=== PATIENT | female | born 1945 | race Caucasian/White ===

== ENCOUNTER 2016-10-06 03:18 | Emergency (ER) | payer OTHER ==
[~2016-10-06] VITALS: Ht 162.6 cm; Wt 69.9 kg
[~2016-10-06 03:18] MED LIST: ALBUTEROL0.09 MG/A1 INH; AZITHROMYCIN250 MG PO; CIPRO 500MG TA500 MG PO; DOXYCYCLINE100 MG PO; ESTRACE0.1 MG/GM TOP; LEVAQUIN500 MG PO; NORVASC5 M1 PO; PREDNISONE 20MG20 MG PO; PYRIDIUM200 MG PO; ROBITUSSIN W/CO10 ML PO; SMZ-TMP 800 MG-1 TAB PO; VITAMIN D32000 I1 PO; ZOFRAN ODT4 MG SL
[2016-10-06 04:07] VITALS: BP 165/82
--- NOTE | 2016-10-06 04:20 | ED GI/GU/ABDOMINAL COMPLAINT ---
History of Present Illness General Chief Complaint: Female Urogenital Problems Stated Complaint: "PER PT ?UTI" Source: patient, family Exam Limitations: no limitations Vital Signs & Intake/Output Vital Signs & Intake/Output Vital Signs Date Time Temp Pulse Resp B/P B/P Pulse O2 O2 Flow FiO2 Mean Ox Delivery Rate 10/06 0407 98.9 91 18 165/82 95 Room Air Allergies Coded Allergies: MDX - Penicillin (HIVES 04/01/15) Reconcile Medications Albuterol Sulfate (Albuterol Sulfate Hfa) 0.09 MG/Actuation ARIEL 2 PUFF INH Q4- 6 PRN PRN SHORTNESS OF BREATH 90 MCG PER PUFF Amlodipine Besylate (Norvasc) 5 MG TABLET 1 TAB PO DAILY HTN (Reported) Azithromycin 250 MG TAB 1 DP PO AD ANTIBIOTIC (Reported) 2 the first day followed by 1 for days 2-5 CHOLECALCIFEROL (VITAMIN D3) (Vitamin D-3) 2,000 IU SGL 1 SGL PO DAILY SUPPLEMENT (Reported) Levofloxacin (Levaquin) 500 MG TAB 1 TAB PO DAILY BRONCHITIS Ondansetron (Zofran Odt) 4 MG TAB.RAPDIS 1 TAB SL TID PRN nausea Phenazopyridine HCl (Pyridium) 100 MG TABLET 1 TAB PO TID PRN burning with urination Prednisone 20 MG TAB 2 TAB PO DAILY BRONCHTIIS Robitussin AC (Guaifenesin-Codeine Syrup) 10 ML UDC 10 ML PO Q6HR PRN COUGH Triage Note: PER PT UTI SYMPTOMS X 1 MONTH, TOOK COURSE OF MACRODANTIN PER PMD RESULTS NEGATIVE PT STILL REPORTS SYMPTOMS Triage Nurses Notes Reviewed? yes ? n Is pt currently ? No Onset: Gradual Duration: week(s): Timing: recent history Quality/Severity: dysuria Location: "It only [place] when I urinate" No abdominal pain Radiation: no radiation Activities at Onset: "worse when I eat tomatos" Modifying Factors: Worsens With: urinating. Associated Symptoms: burning with urination HPI: 71 yo woman with several weeks of intermittent dysuria. She notes that she completed a course of macrobid, but she still feels intermittent symptoms, especially after she eats tomatos. She also notes, "Sometimes I feel flushed... I just don't feel good." She denies chest pain, fever, chills, nausea, vomiting, diarrhea, shortness of breath. "I don't know... I just don't feel good." She notes no pruritis, vaginal discharge, hematuria. Past History Travel History Traveled to [place] past 21 day No Medical History Any Pertinent Medical History? see below for history Neurological: NONE EENT: NONE Cardiovascular: hypertension Respiratory: NONE Gastrointestinal: NONE Hepatic: NONE Renal: NONE Musculoskeletal: NONE Psychiatric: NONE Endocrine: NONE Blood Disorders: anemia Cancer(s): NONE BILLING REP/Reproductive: NONE Surgical History Surgical History: non-contributory Psychosocial History What is your primary language Albanian Tobacco Use: Never used Family History Hx Contributory? No Review of Systems Review of Systems Constitutional: Reports: no symptoms. EENTM: Reports: no symptoms. Respiratory: Reports: no symptoms. Cardiovascular: Reports: no symptoms. GI: Reports: no symptoms. Genitourinary: Reports: no symptoms. Musculoskeletal: Reports: no symptoms. Skin: Reports: no symptoms. Neurological/Psychological: Reports: no symptoms. Hematologic/Endocrine: Reports: no symptoms. Immunologic/Allergic: Reports: no symptoms. All Other Systems: Reviewed and Negative Physical Exam Physical Exam General Appearance: well developed/nourished, no apparent distress Head: atraumatic, normal appearance Eyes: Bilateral: normal appearance. Ears, Nose, Throat, Mouth: hearing grossly normal Neck: normal inspection, supple, full range of motion, normal alignment Respiratory: normal breath sounds, chest non-tender, no respiratory distress, quiet respiration, lungs clear Cardiovascular: regular rate/rhythm Gastrointestinal: normal bowel sounds, soft, non-tender Back: normal inspection Extremities: normal range of motion Neurologic/Psych: no motor/sensory deficits, awake, alert, oriented x 3 Skin: intact, normal color, warm/dry Core Measures ACS in differential dx? No Severe Sepsis Present: No Septic Shock Present: No Progress Differential Diagnosis: UTI/pyelo, vs other Plan of Care: Orders Procedure Date/time Status LIPASE 10/06 430 Complete COMPREHENSIVE METABOLIC PANEL 10/06 430 Complete CBC WITHOUT DIFFERENTIAL 10/06 430 Complete URINALYSIS 10/06 0327 Complete Current Medications Sig/Renetta Start time Last Medication Dose Stop Time Status Admin Ondansetron HCl 4 MG ONCE ONE 10/06 429 UNVr 10/06 (Zofran) 10/06 430 0453 Phenazopyridine HCl 100 MG ONCE ONE 10/06 429 UNVr 10/06 (Pyridium) 10/061 0453 Laboratory Tests 10/06/16 0430: Anion Gap 12, Estimated GFR > 60, BUN/Creatinine Ratio 26.7 H, Glucose 116 H, Calcium 9.2, Total Bilirubin 0.5, AST 16, ALT 25, Alkaline Phosphatase 82, Total Protein 7.4, Albumin 4.2, Globulin 3.2, Albumin/Globulin Ratio 1.3, Lipase 150, CBC w Diff NO MAN DIFF REQ, RBC 4.98, MCV 64.6 L, MCH 20.0 L, RDW 15.1 H, MPV 8.8, Gran % 57.7, Lymphocytes % 28.2, Monocytes % 5.4, Eosinophils % 8.0 H, Basophils % 0.7, Absolute Granulocytes 4.5, Absolute Lymphocytes 2.2, Absolute Monocytes 0.4, Absolute Eosinophils 0.6, Absolute Basophils 0.1, PUBS MCHC 31.0 L 10/06/16 0357: Urine Color YEL, Urine Clarity CLEAR, Urine pH 6.0, Ur Specific [place] 1.025, Urine Protein NEG, Urine Ketones NEG, Urine Nitrite NEG, Urine Bilirubin NEG, Urine Urobilinogen 0.2, Ur Leukocyte Esterase NEG, Ur Microscopic SEDIMENT EXAMINED, Urine RBC 1-3, Urine WBC RARE, Ur Epithelial Cells RARE, Urine Bacteria RARE H, Urine Hemoglobin SMALL H, Urine Glucose NEG Initial ED EKG: none Departure Departure Disposition: HOME OR SELF CARE Condition: Stable Clinical Impression Primary Impression: Dysuria Referrals: KEVIN BUSTAMANTE APRN (PCP/Family) Departure Forms: Customer Survey General Discharge Information Prescriptions: Current Visit Scripts Phenazopyridine HCl (Pyridium) 1 TAB PO TID PRN burning with urination #12 TAB Ondansetron (Zofran Odt) 1 TAB SL TID PRN nausea #10 TAB Comments no sign of uti on u/a... labs benign... encouraged patient to follow up with urologist, keep diary of symptoms/food intake, and follow up with pmd... gave rx for pyridium for comfort.
[2016-10-06] MEDS ORDERED: PYRIDIUM100 M1 PO (04:26)
[2016-10-06 04:42] LABS: ABSOLUTE BASOPHIL COUNT 0.1 /CUMM (0.0-0.2); ABSOLUTE EOSINOPHIL COUNT 0.6 /CUMM (0.0-0.7); ABSOLUTE GRANULOCYTE CT 4.5 /CUMM (1.4-6.5); ABSOLUTE LYMPH COUNT 2.2 /CUMM (1.2-3.4); ABSOLUTE MONOCYTE COUNT 0.4 /CUMM (0.10-0.60); BASOPHIL % 0.7 % (0.0-2.0); GRANULOCYTE % 57.7 % (42.2-75.2); HEMATOCRIT 32.2 % (37-47); MEAN CORPUSCULAR VOLUME 64.6 FL (81.0-99.0); MEAN PLATELET VOLUME 8.8 FL (7.4-10.4); PLATELET COUNT 269 /CUMM (130-400); RBC DISTRIBUTION WIDTH 15.1 % (11.5-14.5); RED BLOOD CELL CT 4.98 /CUMM (4.20-5.40); WHITE BLOOD CELL COUNT 7.7 /CUMM (4.8-10.8)
[2016-10-06] MEDS ORDERED: ZOFRAN ODT4 M1 SL (05:29)
== END 2016-10-06 06:17 ==
LOC: ERH 03:18
PROVIDERS: Pediatrics
DX: R30.0 Dysuria (principal)
CPT/HCPCS: 81001; J3101